=== PATIENT | female | born 1975 | race Caucasian/White ===

== ENCOUNTER 2017-08-01 11:02 | Emergency (ER) | payer OTHER ==
[~2017-08-01] VITALS: Ht 162.6 cm; Wt 137.0 kg
[~2017-08-01 11:02] MED LIST: LISI40TA4 PO
[2017-08-01 11:22] VITALS: BP 137/50
--- NOTE | 2017-08-01 11:33 | NUR ---
PATIENT PRESENTS TO ED WITH UPPER LIP SWELLING SINCE 0300 LAST NIGHT HX: HTN . PT STATES MY MEDICATION IS LISINOPRIL, PT STATES I HAVE HOT COCOA LAST NIGHT AND ASHELY CRACKERS AND PEANUT BUTTER, DENIES N/V/D; SKIN IS PINK/WARM/DRY; AAOX4 WITH EVEN AND STEADY GAIT; LUNGS CLEAR BL; HR EVEN AND REGULAR; PT DENIES ANY FEVER, CP, SOB, OR COUGH AT THIS TIME; PATIENT STATES PAIN OF 0/10 AT THIS TIME; PATIENT POSITIONED FOR COMFORT; HOB ELEVATED; BEDRAILS UP X2; BED DOWN. ER MD MADE AWARE OF PT STATUS. PT SAY I CANNT FEEL NOTHING ON LEFT SIDE, BUT KERRY BEEN DRINKING WATER .
--- NOTE | 2017-08-01 11:38 | NUR ---
PER PT YESTERDAY FELT LIKE BUMP ON HER LIP AND THEN SHE WOKE UP AND SHE NOTICED HER LIP IS SWOLLEN, I PUT SOME ICE ON MY LIP PER, NOTED SWELLING ON UPPER LIP, NO BLEEDING NOTED.
--- NOTE | 2017-08-01 11:49 | NUR ---
PT DRINKING WATER AT THIS TIME, NO SOB NOTED.
--- NOTE | 2017-08-01 12:26 | NUR ---
DR. ROACH AT BESIDE
[2017-08-01] MEDS ORDERED: diphenhydrAMINE 50 MG/ML VIAL IM ONE (12:35)
[2017-08-01] MEDS ORDERED: diphenhydrAMINE 50 MG/ML VIAL ONE (12:39)
[2017-08-01 13:33] VITALS: BP 135/89
--- NOTE | 2017-08-01 13:33 | NUR ---
Patient discharged with v/s stable. Written and verbal after care instructions given and explained. Patient alert, oriented and verbalized understanding of instructions. Ambulatory with steady gait. All questions addressed prior to discharge. ID band removed. Patient advised to follow up with PMD. Rx of HYDROCHLORTHIAZIDE given. Patient educated on indication of medication including possible reaction and side effects. Opportunity to ask questions provided and answered.
== END 2017-08-01 13:33 | disposition home or self-care (01) ==
LOC: MED 11:02
DX: T78.3XXA Angioneurotic edema, initial encounter (principal); I10 Essential (primary) hypertension
CPT/HCPCS: 96372; 99283; J1200